=== PATIENT | female | born 1930 | race Hispanic/Latino ===

== ENCOUNTER → 2018-11-29 | Outpatient (CLI) | payer MEDICARE ==
[~2018-11-29] MED LIST: NITROFURANTOIN100 GM; Z.0.LISINOPRIL40 MG; Z.0.LOVAZA1 GM; Z.0.MELOXICAM15 MG; Z.0.PRAVACHOL40 MG; Z.0.TERBINAFINE HC25; Z.0.XALATAN2.5 ML
--- NOTE | 2018-11-29 15:53 | Diagnostic Imaging Report ---
EXAM: BONE MINERAL DENSITY HISTORY: Bone mineralization evaluation COMPARISON: None DISCUSSION: Evaluation of the left hip and lumbar spine was performed utilizing DEXA Hologic bone densitometer. The study is technically adequate. Left hip femoral neck bone mineral density: 0.54 g/cm2, T-score is -2.8, Z-score is -0.3. Left hip total bone mineral density: 0.62 g/cm2, T-score is -2.6, Z-score is -0.3. Lumbar spine total bone mineral density: 0.95 gm/cm2, T-score is -0.9, Z-score is 2.0. Impression: Bone mineralization by WHO Classification is osteoporosis, the fracture risk is increased. Signed by: Dr. Ha Navarrete M.D. on 11/29/2018 3:50 PM
== END ==
LOC: DX 13:25
PROVIDERS: ATTEND Internal Medicine
DX: M81.0 Age-related osteoporosis without current pathological fracture (principal)
CPT/HCPCS: 77080